=== PATIENT | male | born 1985 | race Caucasian/White ===

== ENCOUNTER 2018-07-25 08:25 | Inpatient (IN) ==
[2018-07-25] MEDS ORDERED: Acetaminophen 325 MG Tablet PO ONE (08:37)
[2018-07-25] MEDS ORDERED: Ketorolac Inj 30 MG/ML (IVP) Vial IV.PUSH ONE (08:39)
[2018-07-25] MEDS ORDERED: Sod Chloride 0.9% Inj 1,000 ML IV.SIG SCH ×2 (08:45→09:30)
--- NOTE | 2018-07-25 08:45 | ED ---
HPI General Chief Complaint: Headache Stated Complaint: flu like symptoms Time Seen by Provider: 07/25/18 08:32 Source: patient Mode of arrival: EMS Limitations: no limitations History of Present Illness HPI Narrative: The patient is a 33-year-old male who presents to the emergency department via EMS for fever, chills, sweats, and possible "blood infection". 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 The patient also complains of diffuse body aches, occasional cough, and nausea with vomiting secondary to cough. The patient states that his girlfriend was recently admitted for a blood infection after shooting heroin. The patient denies any personal history of bacteremia or endocarditis. Symptoms are moderate and progressive. The patient denies any pinpoint back tenderness, simply states his entire back is "sore ". MD complaint: Reports fever and malaise Onset (ago): day(s) Temperature Source: oral Context: Reports other(s) with similar symptoms Associated symptoms: Reports chills, myalgias, cough, nausea and night sweats Relieving factors: nothing Exacerbating factors: other Treatments prior to arrival fever: Reports none Related Data Home Medications Medication Instructions Recorded Confirmed No Known Home Medications 07/25/18 07/25/18 Allergies Allergy/AdvReac Type Severity Reaction Status Date / Time No Known Allergies Allergy Verified 07/25/18 08:32 Review of Systems ROS: all other systems reviewed are negative [facility] Medical History Medical History Chronic back pain (Chronic) Surgical History Surgical History History of back surgery (Chronic) Family History Family History Father Lung cancer Social History Social History Substance History: Active Abuse Second Hand Smoke Exposure: Yes Smoking Status: Current every day smoker Tobacco Type: Cigarettes Packs Per Day: 1.5 Cigarettes Per Day: 30.0 How Often Do You Have a Drink Containing Alcohol: Never Recent Travel in [facility] within the Last 8 Weeks: No Recent Out of Country Travel within the Last 8 Weeks: No Substance Abuse Detail Heroin: Route Used Substance Abuse: Intravenously Immunization History Tetanus Immunization: Unsure Exam Narrative Exam Narrative: GENERAL: Awake, alert, 33-year-old male who appears his stated age and is in no acute respiratory distress. SKIN: Focused skin assessment warm/dry. HEAD: Atraumatic. Normocephalic. EYES: Pupils equal and round. No scleral icterus. No injection or drainage. ENT: No nasal bleeding or discharge. Mucous membranes pink and moist. NECK: Trachea midline. No JVD. CARDIOVASCULAR: Regular, tachycardic with a heart rate of 105. No audible murmur. RESPIRATORY: No accessory muscle use. Few scattered wheezes. GASTROINTESTINAL: Abdomen soft, non-tender, nondistended. Hepatic and splenic margins not palpable. Back: Mild tenderness of the paravertebral muscles but no midline tenderness over the thoracic or lumbar vertebrae. MUSCULOSKELETAL: No obvious deformities. No clubbing. No cyanosis. No edema. NEUROLOGICAL: Awake and alert. No obvious cranial nerve deficits. Motor grossly within normal limits. Normal speech. PSYCHIATRIC: Appropriate mood and affect; insight and judgment normal. Course Initial Documented Vital Signs Temperature 101.2 F H 07/25/18 08:32 Pulse Rate 97 H 07/25/18 08:32 Respiratory Rate 22 07/25/18 08:32 Blood Pressure 115/56 L 07/25/18 08:32 Pulse Oximetry 99 07/25/18 08:32 Last Documented Vital Signs Temperature 97.6 F 07/25/18 15:30 Pulse Rate 65 07/25/18 15:30 Respiratory Rate 16 07/25/18 15:30 Blood Pressure 93/55 L 07/25/18 15:30 Pulse Oximetry 98 07/25/18 15:30 Medical Decision Making [facility] Narrative Medical decision making narrative: IV was established, labs are drawn and sent, and the patient was placed on cardiac telemetry monitoring and continuous pulse oximetry monitoring. EKG was ordered and interpreted. Chest x-ray was obtained. Blood culture and lactic acid was sent to lab. UA was sent to lab. The patient was administered Tylenol, Toradol, and IV fluids. The patient's lactic acid was mildly elevated, therefore, patient was administered 2 L of IV fluids. UA is unremarkable. Chest x-ray is negative for pneumonia. Influenza screen is negative. The patient is high risk for bacteremia/septicemia secondary to IVDA, therefore, was administered vancomycin and cefepime. I discussed the patient with Dr. Nielson who agrees with 23-hour observation until blood cultures have resulted. The patient is comfortable with this plan of care and disposition. Medical Screen Exam Complete: Yes Emergency Medical Condition: Yes Differential Diagnosis Differential Diagnosis: Differential diagnosis includes bacteremia, septicemia, sepsis, endocarditis, epidural abscess, influenza, pneumonia, pyelonephritis, viral syndrome. Lab Data Result diagrams: 07/25/18 08:30 07/25/18 08:30 Lab Results 07/25/18 07/25/18 07/25/18 Range/Units 08:30 08:30 08:30 WBC 5.1 (4.0-11.0) th/mm3 RBC 3.86 L (4.50-5.90) mil/mm3 Hgb 11.8 L (13.0-17.0) gm/dL Hct 33.5 L (39.0-51.0) % MCV 86.8 (80.0-100.0) fL MCH 30.7 (27.0-34.0) pg MCHC 35.3 (32.0-36.0) % RDW 13.0 (11.6-17.2) % Plt Count 140 L (150-450) th/mm3 MPV 8.1 (7.0-11.0) fL Neut % (Auto) 90.6 H (16.0-70.0) % Lymph % (Auto) 6.9 L (9.0-44.0) % [place] % (Auto) 1.7 (0.0-8.0) % Eos % (Auto) 0.6 (0.0-4.0) % Baso % (Auto) 0.2 (0.0-2.0) % Neut # (Auto) 4.6 (1.8-7.7) th/mm3 Lymph # (Auto) 0.4 L (1.0-4.8) th/mm3 [place] # (Auto) 0.1 (0.0-0.9) th/mm3 Eos # (Auto) 0.0 (0.0-0.4) th/mm3 Baso # (Auto) 0.0 (0.0-0.2) th/mm3 WBC Differential . Differential Comment Auto diff final PT 11.5 (9.8-11.6) sec INR 1.1 Ratio APTT 29.2 (23.4-31.7) sec Sodium (136-145) meq/L Potassium (3.5-5.1) meq/L Chloride (98-107) meq/L Carbon Dioxide (21.0-32.0) meq/L Anion Gap (5-15) meq/L BUN (7-18) mg/dL Creatinine (0.60-1.30) mg/dL Estimated GFR (>89) mL/min Random Glucose (74-106) mg/dL Lactic Acid (0.4-2.0) mmol/L Calcium (8.5-10.1) mg/dL Magnesium (1.5-2.5) mg/dL Total Bilirubin (0.2-1.0) mg/dL AST (15-37) U/L ALT (12-78) U/L Alkaline Phosphatase (45-117) U/L Total Creatine Kinase 32 L (39-308) U/L Troponin I Less than 0.02 L (0.02-0.05) ng/mL Total Protein (6.4-8.2) g/dL Albumin (3.4-5.0) g/dL Lipase 108 (73-393) U/L Urine Color (Yellw/Straw) Urine Clarity (Clear) Urine pH (5.0-8.5) Ur Specific [place] (1.002-1.035) Urine Protein (Neg-Trace) mg/dL Urine Glucose (UA) (Negative) mg/dL Urine Ketones (Negative) mg/dL Urine Occult Blood (Negative) Urine Nitrate (Negative) Urine Bilirubin (Negative) Urine Urobilinogen (Less than 2) mg/dL Ur Leukocyte Esterase (Negative) Urine WBC (0-5) /hpf Ur Squamous Epith Cells (0-5) /hpf Micro UA Comment Ur Microscopic Review Urine Culture Comments 07/25/18 07/25/18 07/25/18 Range/Units 08:30 08:30 09:40 WBC (4.0-11.0) th/mm3 RBC (4.50-5.90) mil/mm3 Hgb (13.0-17.0) gm/dL Hct (39.0-51.0) % MCV (80.0-100.0) fL MCH (27.0-34.0) pg MCHC (32.0-36.0) % RDW (11.6-17.2) % Plt Count (150-450) th/mm3 MPV (7.0-11.0) fL Neut % (Auto) (16.0-70.0) % Lymph % (Auto) (9.0-44.0) % [place] % (Auto) (0.0-8.0) % Eos % (Auto) (0.0-4.0) % Baso % (Auto) (0.0-2.0) % Neut # (Auto) (1.8-7.7) th/mm3 Lymph # (Auto) (1.0-4.8) th/mm3 [place] # (Auto) (0.0-0.9) th/mm3 Eos # (Auto) (0.0-0.4) th/mm3 Baso # (Auto) (0.0-0.2) th/mm3 WBC Differential Differential Comment PT (9.8-11.6) sec INR Ratio APTT (23.4-31.7) sec Sodium 138 (136-145) meq/L Potassium 3.7 (3.5-5.1) meq/L Chloride 107 (98-107) meq/L Carbon Dioxide 21.3 (21.0-32.0) meq/L Anion Gap 10 (5-15) meq/L BUN 12 (7-18) mg/dL Creatinine 1.07 (0.60-1.30) mg/dL Estimated GFR 80 L (>89) mL/min Random Glucose 107 H (74-106) mg/dL Lactic Acid 3.0 H (0.4-2.0) mmol/L Calcium 8.5 (8.5-10.1) mg/dL Magnesium 1.6 (1.5-2.5) mg/dL Total Bilirubin 1.1 H (0.2-1.0) mg/dL AST 15 (15-37) U/L ALT 17 (12-78) U/L Alkaline Phosphatase 49 (45-117) U/L Total Creatine Kinase (39-308) U/L Troponin I (0.02-0.05) ng/mL Total Protein 6.8 (6.4-8.2) g/dL Albumin 3.2 L (3.4-5.0) g/dL Lipase (73-393) U/L Urine Color Yellow (Yellw/Straw) Urine Clarity Clear (Clear) Urine pH 7.0 (5.0-8.5) Ur Specific [place] 1.017 (1.002-1.035) Urine Protein Negative (Neg-Trace) mg/dL Urine Glucose (UA) Negative (Negative) mg/dL Urine Ketones Negative (Negative) mg/dL Urine Occult Blood Negative (Negative) Urine Nitrate Negative (Negative) Urine Bilirubin Negative (Negative) Urine Urobilinogen 4 or greater (Less than 2) mg/dL Ur Leukocyte Esterase Negative (Negative) Urine WBC Less than 1 (0-5) /hpf Ur Squamous Epith Cells <1 (0-5) /hpf Micro UA Comment Culture not ind Ur Microscopic Review Not Reportable Urine Culture Comments Culture not ind 07/25/18 Range/Units 16:56 WBC (4.0-11.0) th/mm3 RBC (4.50-5.90) mil/mm3 Hgb (13.0-17.0) gm/dL Hct (39.0-51.0) % MCV (80.0-100.0) fL MCH (27.0-34.0) pg MCHC (32.0-36.0) % RDW (11.6-17.2) % Plt Count (150-450) th/mm3 MPV (7.0-11.0) fL Neut % (Auto) (16.0-70.0) % Lymph % (Auto) (9.0-44.0) % [place] % (Auto) (0.0-8.0) % Eos % (Auto) (0.0-4.0) % Baso % (Auto) (0.0-2.0) % Neut # (Auto) (1.8-7.7) th/mm3 Lymph # (Auto) (1.0-4.8) th/mm3 [place] # (Auto) (0.0-0.9) th/mm3 Eos # (Auto) (0.0-0.4) th/mm3 Baso # (Auto) (0.0-0.2) th/mm3 WBC Differential Differential Comment PT (9.8-11.6) sec INR Ratio APTT (23.4-31.7) sec Sodium (136-145) meq/L Potassium (3.5-5.1) meq/L Chloride (98-107) meq/L Carbon Dioxide (21.0-32.0) meq/L Anion Gap (5-15) meq/L BUN (7-18) mg/dL Creatinine (0.60-1.30) mg/dL Estimated GFR (>89) mL/min Random Glucose (74-106) mg/dL Lactic Acid 1.7 (0.4-2.0) mmol/L Calcium (8.5-10.1) mg/dL Magnesium (1.5-2.5) mg/dL Total Bilirubin (0.2-1.0) mg/dL AST (15-37) U/L ALT (12-78) U/L Alkaline Phosphatase (45-117) U/L Total Creatine Kinase (39-308) U/L Troponin I (0.02-0.05) ng/mL Total Protein (6.4-8.2) g/dL Albumin (3.4-5.0) g/dL Lipase (73-393) U/L Urine Color (Yellw/Straw) Urine Clarity (Clear) Urine pH (5.0-8.5) Ur Specific [place] (1.002-1.035) Urine Protein (Neg-Trace) mg/dL Urine Glucose (UA) (Negative) mg/dL Urine Ketones (Negative) mg/dL Urine Occult Blood (Negative) Urine Nitrate (Negative) Urine Bilirubin (Negative) Urine Urobilinogen (Less than 2) mg/dL Ur Leukocyte Esterase (Negative) Urine WBC (0-5) /hpf Ur Squamous Epith Cells (0-5) /hpf Micro UA Comment Ur Microscopic Review Urine Culture Comments Imaging Data Radiologist's impression: Chest X-Ray 07/25/18 08:38 CONCLUSION: No evidence of acute cardiopulmonary process. ECG Data EKG Prior to Arrival: No Attestation: I personally reviewed and interpreted this ECG as follows: Interpretation: EKG reveals normal sinus rhythm with a rate 81. Nonspecific T wave changes. Discharge Plan Discharge Disposition Patient Disposition: ED Admit(ED Internal Use Only) Discharge Condition Condition: Stable Discharge Order Discharge Orders: ED Use Only Admit Order (Routine); Ordered 07/25/18 Ordered By: Erasmo Howard Discharge Details Diagnosis: SIRS (systemic inflammatory response syndrome), IVDU (intravenous drug user), Fever Physicians Team ED Provider: Erasmo Howard Primary Care Provider: UNKNOWN, Attending Provider: Debby Nielson Discharge Interventions Interventions: Vital Signs Last Done: 07/25/18 12:34 ED Discharge Assessment Last Done: 07/25/18 12:34 Status ED Status: Admitted Observation Patient
[2018-07-25 08:54] LABS: Baso % (Auto) 0.2 % (0.0-2.0); Eos % (Auto) 0.6 % (0.0-4.0); Hematocrit 33.5 % (39.0-51.0); Hemoglobin 11.8 gm/dL (13.0-17.0); Lymph # (Auto) 0.4 th/mm3 (1.0-4.8); Lymph % (Auto) 6.9 % (9.0-44.0); Mean Corpuscular HGB Conc 35.3 % (32.0-36.0); Mean Corpuscular Hemoglobin 30.7 pg (27.0-34.0); Mean Corpuscular Volume 86.8 fL (80.0-100.0); Mean Platelet Volume 8.1 fL (7.0-11.0); Mono # (Auto) 0.1 th/mm3 (0.0-0.9); Mono % (Auto) 1.7 % (0.0-8.0); Neut # (Auto) 4.6 th/mm3 (1.8-7.7); Neut % (Auto) 90.6 % (16.0-70.0); Platelet Count 140 th/mm3 (150-450); Red Blood Count 3.86 mil/mm3 (4.50-5.90); White Blood Count 5.1 th/mm3 (4.0-11.0)
[2018-07-25 09:04] LABS: Activated Partial Thrombo Time 29.2 sec (23.4-31.7); INR 1.1 Ratio; Prothrombin Time 11.5 sec (9.8-11.6)
--- NOTE | 2018-07-25 09:14 | XR ---
EXAM DATE: 07/25/2018 9:07 AM EST AGE/SEX: 33 years / Male INDICATIONS: Chest pain for 2 days. CLINICAL DATA: This is the patient's initial encounter. Patient reports that signs and symptoms have been present for 2 days and indicates a pain score of 8/10. MEDICAL/SURGICAL HISTORY: None. None. COMPARISON: . FINDINGS: A single AP view of the chest demonstrates the lungs to be symmetrically aerated without evidence of mass, infiltrate or effusion. The cardiomediastinal contours are unremarkable. Osseous structures a re intact. CONCLUSION: No evidence of acute cardiopulmonary process. Electronically signed by: Raj De Oliveira MD Board Certified Radiologist 07/25/2018 9:12 AM EST
[2018-07-25 09:15] LABS: Alanine Aminotransferase 17 U/L (12-78); Albumin 3.2 g/dL (3.4-5.0); Anion Gap 10 meq/L (5-15); Aspartate Aminotransferase 15 U/L (15-37); Blood Urea Nitrogen 12 mg/dL (7-18); Calcium 8.5 mg/dL (8.5-10.1); Carbon Dioxide 21.3 meq/L (21.0-32.0); Chloride 107 meq/L (98-107); Glomerular Filtration Rate 80 mL/min (>89); Glucose,Random 107 mg/dL (74-106); Magnesium 1.6 mg/dL (1.5-2.5); Potassium 3.7 meq/L (3.5-5.1); Sodium 138 meq/L (136-145)
[2018-07-25 09:18] LABS: Alkaline Phosphatase 49 U/L (45-117); Total Protein 6.8 g/dL (6.4-8.2)
[2018-07-25 09:21] LABS: Lipase 108 U/L (73-393)
[2018-07-25 09:40] LABS: Creatine Kinase 32 U/L (39-308)
[2018-07-25 10:21] LABS: Bilirubin,Urine Negative (Negative); Clarity,Urine Clear (Clear); Color,Urine Yellow (Yellw/Straw); Glucose,Urine (UA) Negative (Negative); Leukocyte Esterase,Urine Negative (Negative); Nitrite,Urine Negative (Negative); Specific Gravity,Urine 1.017 (1.002-1.035); Squamous Epithelial Cell,Urine <1 /hpf (0-5); Urobilinogen,Urine 4 or Greater mg/dL (Less than 2)
[2018-07-25] MEDS ORDERED: Naloxone Inj 0.4 MG/ML Vial IV.PUSH PRN (11:20)
[2018-07-25] MEDS ORDERED: Acetaminophen 325 MG Tablet PO PRN ×2 (11:20)
[2018-07-25] MEDS ORDERED: Bisacodyl 10 MG Supp RECTAL PRN (11:20)
[2018-07-25] MEDS ORDERED: Vancomycin Consult Pharmacy OTHER PRN (11:24)
[2018-07-25] MEDS ORDERED: Ibuprofen 400 MG Tablet PO SCH (12:00)
[2018-07-25] MEDS ORDERED: Vancomycin Inj 1,000 MG in Sodium Chlor 0.9% Inj 250 ML IV.SIG SCH ×2 (12:00→18:00)
--- NOTE | 2018-07-25 12:19 | P.HPIM ---
History of Present Illness Primary Care Physician: UNKNOWN Chief Complaint: Fevers and chills History of Present Illness: 33-year-old white male with a history of IV drug abuse presents to the emergency room with a 3-day history of intermittent chills of fever along with some nausea, body aches, joint pains, few episodes of diarrhea. He reports his last IV use was yesterday with heroin and Dilaudid. He usually injects on his right antecubital area. He has not seen any other lesions in his body. 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 He also smokes 1-1/2 pack of cigarettes on a daily basis. He has a history of chronic back pain for herniated disc in which he completed surgery in the past. Diagnosis (1) SIRS (systemic inflammatory response syndrome): (2) IVDU (intravenous drug user): Review of Systems Constitutional: Reports as per HPI, Reports body ache(s), Reports chills, Denies fatigue, Reports fever(s) and Denies headache(s) Eyes: Denies blurry vision, Denies change in vision and Denies eye pain Ears, Nose, Mouth, and Throat: Denies abnormal hearing, Denies headache(s), Denies mouth pain, Denies nasal congestion, Denies neck pain and Denies sore throat Cardiovascular: Denies chest pain, Denies pedal edema, Denies palpitations and Denies dyspnea Respiratory: Denies cough and Denies dyspnea Gastrointestinal: Denies abdominal pain, Denies constipation, Reports loose stools, Reports nausea and Reports vomiting Musculoskeletal: Reports back pain, Reports myalgias, Reports arthralgias, Denies neck pain and Denies numbness Skin/Breast: Denies new lesions and Denies rash Neurologic: Denies abnormal hearing, Denies headache(s), Denies focal weakness, Denies memory loss and Denies numbness Psychiatric: Denies anxiety, Denies depression and Denies memory loss Endocrine: Denies cold intolerance, Denies heat intolerance and Denies palpitations Hematologic/Lymphatic: Denies easy bleeding and Denies easy bruising PMFSH History History Provided By: Patient Medical History Medical History Chronic back pain (Chronic) Surgical History Surgical History History of back surgery (Chronic) Family History Family History Father Lung cancer Social History Social History Substance History: Active Abuse Second Hand Smoke Exposure: Yes Smoking Status: Current every day smoker Tobacco Type: Cigarettes Packs Per Day: 1.5 Cigarettes Per Day: 30.0 How Often Do You Have a Drink Containing Alcohol: Never Recent Travel in [place] within the Last 8 Weeks: No Recent Out of Country Travel within the Last 8 Weeks: No Substance Abuse Detail Heroin: Route Used Substance Abuse: Intravenously Immunization History Tetanus Immunization: Unsure Medications and Allergies Allergies Allergy/AdvReac Type Severity Reaction Status Date / Time No Known Allergies Allergy Verified 07/25/18 08:32 Home Medications Medication Instructions Recorded Confirmed Type No Known Home Medications 07/25/18 07/25/18 History Active Medications: Active Medications Acetaminophen (Tylenol) 650 mg PO Q4H PRN PRN Reason: Temp > 100.4 Acetaminophen (Tylenol) 650 mg PO Q6HR PRN PRN Reason: PAIN SCALE 6 TO 10 Al Hydroxide/Mg Hydroxide (Milk Of Magnesia Liq) 30 ml PO Q12H PRN PRN Reason: Mild Constipation Bisacodyl (Dulcolax Supp) 10 mg RECTAL DAILY PRN PRN Reason: SEVERE CONSITIPATION Vancomycin HCl 1,000 mg/ (Sodium Chloride) 250 mls @ 250 mls/hr IV.SIG [employer]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 Vancomycin HCl 1,000 mg/ (Sodium Chloride) 250 mls @ 250 mls/hr IV.SIG Q12H BASIL Cefepime HCl 1,000 mg/ Sodium (Chloride) 100 mls @ 200 mls/hr IV.SIG Q8H BASIL Ibuprofen (Motrin) 400 mg PO Q4HR BASIL Ketorolac Tromethamine (Toradol Inj) 30 mg IV.PUSH Q6H PRN PRN Reason: BREAKTHROUGH PAIN Stop: 07/30/18 11:19 Lactulose (Lactulose Liq) 30 ml PO DAILY PRN PRN Reason: SEVERE CONSITIPATION Naloxone HCl (Narcan Inj) 0.4 mg IV.PUSH UNSCH PRN PRN Reason: SEE LABEL COMMENTS Ondansetron HCl (Zofran Inj) 4 mg IV.PUSH Q6H PRN PRN Reason: NAUSEA OR VOMITING Pharmacy Profile Note (Vancomycin Consult Pharmacy) 1 each OTHER UNSCH PRN PRN Reason: Pharmacy to dose Sennosides (Senokot) 17.2 mg PO Q12H PRN PRN Reason: Moderate Constipation Sodium Chloride (Ns Flush) 2 ml IV.FLUSH BID BASIL Sodium Chloride (Ns Flush) 2 ml IV.FLUSH PRN PRN PRN Reason: FLUSH AFTER USING IV ACCESS Physical Exam Vital signs: Last Vital Signs Temp 98.9 F 07/25/18 10:20 Pulse 88 07/25/18 10:20 Resp 20 07/25/18 10:20 BP 112/58 L 07/25/18 10:20 Pulse Ox 98 07/25/18 10:20 Intake & Output 07/23/18 07/24/18 07/25/18 07/26/18 06:59 06:59 06:59 06:59 Intake Total 1999 Balance 1999 Weight 90.718 kg Narrative: GENERAL: Well-nourished well-developed male no acute distress SKIN: Warm and dry. Injection track velasquez over the right antecubital area HEAD: Atraumatic. Normocephalic. EYES: Pupils equal and round. No scleral icterus. No injection or drainage. ENT: No nasal bleeding or discharge. Mucous membranes pink and moist. NECK: Trachea midline. No JVD. CARDIOVASCULAR: Regular rate and rhythm. RESPIRATORY: No accessory muscle use. Clear to auscultation. Breath sounds equal bilaterally. GASTROINTESTINAL: Abdomen soft, non-tender, nondistended. Normoactive bowel sounds MUSCULOSKELETAL: Extremities without clubbing, cyanosis, or edema. No obvious deformities. NEUROLOGICAL: Awake and alert to person place time. No obvious cranial nerve deficits. Motor grossly within normal limits. Five out of 5 muscle strength in the arms and legs. Normal speech. PSYCHIATRIC: Appropriate mood and affect; insight and judgment normal. Results Labs CBC & Chem 7: 07/25/18 08:30 07/25/18 08:30 Imaging Impressions Chest X-Ray 07/25/18 08:38 CONCLUSION: No evidence of acute cardiopulmonary process. Caprini VTE Risk Assessment Caprini VTE Risk Assessment: No/Low Risk (score <= 1) Caprini Risk Assessment Model: Point Value = 1 Point Value = 2 Point Value = 3 Point Value = 5 Age 41-60 Minor surgery BMI > 25 kg/m2 Swollen legs Varicose veins or History of unexplained or recurrent spontaneous Oral contraceptives or hormone replacement Sepsis (< 1 month) Serious lung disease, including pneumonia (< 1 month) Abnormal pulmonary function Acute myocardial infarction Congestive heart failure (< 1 month) History of inflammatory bowel disease Medical patient at bed rest Age 61-74 Arthroscopic surgery Major open surgery (> 45 min) Laparoscopic surgery (> 45 min) Malignancy Confined to bed (> 72 hours) Immobilizing plaster cast Central venous access Age >= 75 History of VTE Family history of VTE Factor V Leiden Prothrombin [id number] Lupus anticoagulant Anticardiolipin antibodies Elevated serum homocysteine Heparin-induced thrombocytopenia Other congenital or acquired thrombophilia Stroke (< 1 month) Elective arthroplasty Hip, pelvis, or leg fracture Acute spinal cord injury (< 1 month) Prophylaxis Regimen: Total Risk Factor Score Risk Level Prophylaxis Regimen 0-1 Low Early ambulation 2 Moderate Order ONE of the following: *Sequential Compression Device (SCD) *Heparin 5000 units SQ BID 3-4 Higher Order ONE of the following medications: *Heparin 5000 units SQ TID *Enoxaparin/Lovenox 40 mg SQ daily (WT < 150 kg, CrCl > 30 mL/min) *Enoxaparin/Lovenox 30 mg SQ daily (WT < 150 kg, CrCl > 10-29 mL/min) *Enoxaparin/Lovenox 30 mg SQ BID (WT < 150 kg, CrCl > 30 mL/min) AND/OR *Sequential Compression Device (SCD) 5 or more Highest Order ONE of the following medications: *Heparin 5000 units SQ TID (Preferred with Epidurals) *Enoxaparin/Lovenox 40 mg SQ daily (WT < 150 kg, CrCl > 30 mL/min) *Enoxaparin/Lovenox 30 mg SQ daily (WT < 150 kg, CrCl > 10-29 mL/min) *Enoxaparin/Lovenox 30 mg SQ BID (WT < 150 kg, CrCl > 30 mL/min) AND *Sequential Compression Device (SCD) Assessment and Plan (1) SIRS (systemic inflammatory response syndrome): Code(s): R65.10 - Systemic inflammatory response syndrome (SIRS) of non-infectious origin without acute organ dysfunction Status: Acute (2) IVDU (intravenous drug user): Code(s): F19.90 - Other psychoactive substance use, unspecified, uncomplicated Status: Acute Plan 33-year-old white male with a history of IV drug abuse with Dilaudid and heroin presents with 3-day history of fevers and chills, body ache Systemic inflammatory response syndrome with subjective complaints of chills and fever with a history of IV drug abuseblood cultures currently pending, lactic acid 3.0 will repeat level to rule out underlying severe sepsis for bacteremia as source of infection. IV cefepime and vancomycin started. IV drug abusepatient counseled. Tobacco abuse cessation counseling provided, nicotine patch.
[2018-07-25] MEDS: Vancomycin Inj 1,750 MG in Sodium Chlor 0.9% Inj 500 ML IV.SIG SCH (14:01)
[2018-07-25] MEDS: Ketorolac Inj 30 MG/ML (IVP) Vial IV.PUSH PRN ×2 (17:49→23:51)
[2018-07-26] MEDS: Vancomycin Inj 1,750 MG in Sodium Chlor 0.9% Inj 500 ML IV.SIG SCH ×2 (02:21→16:26)
[2018-07-26 04:37] LABS: Baso % (Auto) 0.4 % (0.0-2.0); Eos % (Auto) 0.8 % (0.0-4.0); Hematocrit 30.6 % (39.0-51.0); Hemoglobin 10.7 gm/dL (13.0-17.0); Lymph # (Auto) 1.5 th/mm3 (1.0-4.8); Lymph % (Auto) 24.9 % (9.0-44.0); Mean Corpuscular Hemoglobin 30.3 pg (27.0-34.0); Mean Corpuscular Volume 86.6 fL (80.0-100.0); Mean Platelet Volume 9.2 fL (7.0-11.0); Mono % (Auto) 16.2 % (0.0-8.0); Neut # (Auto) 3.5 th/mm3 (1.8-7.7); Neut % (Auto) 57.7 % (16.0-70.0); Platelet Count 107 th/mm3 (150-450); Red Blood Count 3.54 mil/mm3 (4.50-5.90); Red Cell Distribution Width 12.8 % (11.6-17.2)
[2018-07-26 05:06] LABS: Anion Gap 7 meq/L (5-15); Blood Urea Nitrogen 13 mg/dL (7-18); Calcium 8.1 mg/dL (8.5-10.1); Carbon Dioxide 25.1 meq/L (21.0-32.0); Chloride 111 meq/L (98-107); Glomerular Filtration Rate Greater Than 89 mL/min (>89); Glucose,Random 95 mg/dL (74-106); Potassium 3.8 meq/L (3.5-5.1); Sodium 143 meq/L (136-145)
[2018-07-26] MEDS: Ketorolac Inj 30 MG/ML (IVP) Vial IV.PUSH PRN ×3 (06:30→20:49)
--- NOTE | 2018-07-26 09:19 | P.PNIM ---
Subjective Interval history: Reports that he feels worse. Still with chills, loose stools. Feels like he is in withdrawal. Once something stronger than [place]. Feels anxious. Physical Exam Vital signs: Last Vital Signs Temp 97.3 F L 07/26/18 08:00 Pulse 53 L 07/26/18 08:00 Resp 20 07/26/18 08:00 BP 106/62 07/26/18 08:00 Pulse Ox 98 07/26/18 08:00 Intake & Output 07/24/18 07/25/18 07/26/18 07/27/18 06:59 06:59 06:59 06:59 Intake Total 4275.0 / 4275.0 Balance 4275.0 / 4275.0 Weight 90.718 kg Narrative: GENERAL: Well-nourished well-developed male no acute distress SKIN: Warm and dry. Injection track velasquez over the right antecubital area with no changes CARDIOVASCULAR: Regular rate and rhythm. RESPIRATORY: No accessory muscle use. Clear to auscultation. Breath sounds equal bilaterally. GASTROINTESTINAL: Abdomen soft, non-tender, nondistended. Normoactive bowel sounds MUSCULOSKELETAL: Extremities without clubbing, cyanosis, or edema. No obvious deformities. NEUROLOGICAL: Awake and alert to person place time. No obvious cranial nerve deficits. Motor grossly within normal limits. Five out of 5 muscle strength in the arms and legs. Normal speech. PSYCHIATRIC: Anxious; Results Labs CBC & Chem 7: 07/26/18 03:51 07/26/18 03:51 Labs: Microbiology 07/25/18 08:20 Blood - Peripheral Anaerobic Blood Culture - Preliminary gram negative rods 07/25/18 08:30 Blood - Peripheral Anaerobic Blood Culture - Preliminary gram negative rods 07/25/18 09:35 Nasal Wash Influenza Types A,B Antigen - Final Negative for FLU A and B antigen Infection due to influenza A or B cannot be ruled out since the antigen present in the sample may be below the detection limit of the test. Imaging Imaging: Impressions Chest X-Ray 07/25/18 08:38 CONCLUSION: No evidence of acute cardiopulmonary process. Assessment and Plan (1) SIRS (systemic inflammatory response syndrome): Code(s): R65.10 - Systemic inflammatory response syndrome (SIRS) of non-infectious origin without acute organ dysfunction Status: Deleted (2) IVDU (intravenous drug user): Code(s): F19.90 - Other psychoactive substance use, unspecified, uncomplicated Status: Acute (3) Severe sepsis: Code(s): A41.9 - Sepsis, unspecified organism; R65.20 - Severe sepsis without septic shock Status: Acute Plan 33-year-old white male with a history of IV drug abuse with Dilaudid and heroin presents with 3-day history of fevers and chills, body ache Severe sepsis present on admission with fever, tachycardia in patientblood cultures now positive for gram-negative rods, lactic acid 3.0 continue IV cefepime and vancomycin until final blood cultures. Consult infectious disease , admit inpatient, obtain 2D echo to rule out for endocarditis. IV drug abusepatient counseled. Tobacco abuse cessation counseling provided, nicotine patch. Progress Note: Quality VTE Deep Vein Thrombosis/Pulmonary Embolism Present on Admission: No
[2018-07-26] MEDS: Sod Chloride 0.9% Inj 1,000 ML IV.CONT SCH ×3 (10:32→19:00)
--- NOTE | 2018-07-26 13:10 | MB ---
cc: Luis Spear MD,Debby STEWART DATE: 07/26/2018 REQUESTING PHYSICIAN: Debby Nielson. REASON FOR CONSULTATION: Severe sepsis with gram-negative steven bacteremia, patient with IV drug abuse. HISTORY OF PRESENT ILLNESS: This is a 33-year-old white male, who presented to the emergency department today with headache and flu-like symptoms. The patient notes that he developed severe headache, along with chills, sweats, and fever. He also notes diffuse body aches as well. The patient has a history of IV drug use, and has been using heroin IV lately. He had elevated temperature of 101.2 yesterday morning. His white blood cell count is normal. Blood cultures were taken yesterday morning and have gram-negative rods in both sets. Influenza test is negative. His temperature has improved today. He continues to have a headache, approximately 6/10 scale. He also notes pain in his back. He has a history of back surgery for herniated disk in the past. PAST MEDICAL HISTORY: Chronic back pain, history of back surgery for herniated disk in 2012. ALLERGIES: NO KNOWN DRUG ALLERGIES. MEDICATIONS: Cefepime, nicotine patch, Tylenol, [place] 5 p.r.n. SOCIAL HISTORY: Positive tobacco use. No alcohol. Positive IV drug use in the form of heroin. FAMILY HISTORY: Noncontributory. REVIEW OF SYSTEMS: Pertinent mentioned in history of present illness. All systems have been reviewed and otherwise negative. PHYSICAL EXAMINATION: GENERAL: He is a slender, well-developed male, who is in no acute distress. He is awake, alert, and oriented. VITAL SIGNS: Temperature 98 degrees, BP 115/68, respirations 20, heart rate 70. HEENT: The head is atraumatic. Extraocular movements are grossly intact. Pupils reactive to light. No icterus. No conjunctival erythema. Oropharynx: Moist mucosa without lesions. NECK: Supple without adenopathy. LUNGS: Clear to auscultation. HEART: Regular S1, S2. No murmurs, rubs or gallops. ABDOMEN: Bowel sounds present. Soft, nontender. BACK: Mild tenderness at the low back. The surgical scar at the lower back is intact. RECTAL: Intact. EXTREMITIES: No clubbing, cyanosis or edema. No embolic lesions. SKIN: No diffuse rash. NEUROLOGIC: Nonfocal. PSYCHIATRIC: The patient is calm and cooperative. LABORATORY DATA: WBC 6.0, platelets 107, hemoglobin 10.7, 57% neutrophils, 24% lymphocytes, 16% monocytes. Creatinine 0.82. Estimated GFR greater than 89. LFTs normal. IMPRESSION: 1. Sepsis, probably secondary to IV drug use. 2. Gram-negative bacteremia. 3. Thrombocytopenia. RECOMMENDATIONS: 1. Continue cefepime, but increase the dose to 2 grams IV every 8 hours. 2. Continue to monitor blood cultures. 3. Monitor echocardiogram results. Echocardiogram was performed earlier today. 4. Monitor clinical status. 5. Follow the patient's symptomatology with the headaches, could be related to drug withdrawal. Thank you for this consultation. I will monitor the patient's progress along with you. Luis Spear MD FFDevaughn/rh , 12:32 PM , 12:50 PM
--- NOTE | 2018-07-26 13:37 | ECG ---
Date Performed: 07/25/2018 Time Performed: 09:00:15 PTAGE: 33 years EKG: Sinus rhythm NONSPECIFIC T-WAVE ABNORMALITY BORDERLINE ECG NO PREVIOUS TRACING DOCTOR: Antoni Luther Interpretating Date/Time 07/26/2018 13:29:15
--- NOTE | 2018-07-26 14:23 | ECHRPT ---
Indication: SEPSIS ENDOCARDITIS CONCLUSIONS Normal left ventricular size. Wall thickness is normal. The left ventricular systolic function is normal with an estimated ejection fraction in the range o f 50-55%. No regional wall motion abnormalities are present. Trace mitral valve regurgitation. There is mild tricuspid valve regurgitation. The estimated pulmonary arterial pressure is 39 mmHg. BP: / HR: Rhythm: Technical Quality: FINDINGS LEFT VENTRICLE Normal left ventricular size. Wall thickness is normal. The left ventricular systolic function is normal with an estimated ejection fraction in the range o f 50-55%. No regional wall motion abnormalities are present. RIGHT VENTRICLE Normal right ventricular size and systolic function. LEFT ATRIUM The left atrial size is normal. RIGHT ATRIUM The right atrial size is normal. ATRIAL SEPTUM Normal atrial septal thickness without atrial level shunting by limited color doppler interrogation. AORTA The aortic root and proximal ascending aorta are normal in size on limited imaging. MITRAL VALVE Trace mitral valve regurgitation. AORTIC VALVE Trileaflet aortic valve. No aortic valve stenosis or regurgitation. TRICUSPID VALVE There is mild tricuspid valve regurgitation. The estimated pulmonary arterial pressure is 39 mmHg. PULMONARY VALVE The pulmonary valve is not well visualized. VESSELS The inferior vena cava is normal in size. PERICARDIUM No pericardial effusion. Hugo Ponce MD (Electronically Signed) Final Date:26 July 2018 14:23
[2018-07-27] MEDS ORDERED: Pharmacy Ordered Lab Info OTHER ONE (02:45)
[2018-07-27] MEDS: Ketorolac Inj 30 MG/ML (IVP) Vial IV.PUSH PRN ×3 (03:45→16:26)
[2018-07-27] MEDS: Vancomycin Inj 1,750 MG in Sodium Chlor 0.9% Inj 500 ML IV.SIG SCH (04:02)
--- NOTE | 2018-07-27 09:38 | P.PNIM ---
Subjective Interval history: Wants to take the [place] every 4 hours due to continued pain and not feeling well. Physical Exam Vital signs: Last Vital Signs Temp 98.4 F 07/27/18 08:00 Pulse 65 07/27/18 08:00 Resp 12 07/27/18 08:00 BP 131/68 07/27/18 08:00 Pulse Ox 99 07/27/18 08:00 Intake & Output 07/25/18 07/26/18 07/27/18 07/28/18 06:59 06:59 06:59 06:59 Intake Total 4275.0 / 4275.0 2937.5 / 2937.5 617.5 / 617.5 Output Total 550 / 550 Balance 4275.0 / 4275.0 2387.5 / 2387.5 617.5 / 617.5 Weight 90.718 kg 91.3 kg Narrative: GENERAL: Well-nourished well-developed male no acute distress SKIN: Warm and dry. Injection track velasquez over the right antecubital area with no changes CARDIOVASCULAR: Regular rate and rhythm. RESPIRATORY: No accessory muscle use. Clear to auscultation. Breath sounds equal bilaterally. GASTROINTESTINAL: Abdomen soft, non-tender, nondistended. Normoactive bowel sounds MUSCULOSKELETAL: Extremities without clubbing, cyanosis, or edema. No obvious deformities. NEUROLOGICAL: Awake and alert to person place time. No obvious cranial nerve deficits. Motor grossly within normal limits. Five out of 5 muscle strength in the arms and legs. Normal speech. PSYCHIATRIC: Anxious; Results Labs CBC & Chem 7: 07/26/18 03:51 07/26/18 03:51 Labs: Microbiology 07/25/18 08:30 Blood - Peripheral Aerobic Blood Culture - Preliminary No growth in 1 day 07/25/18 08:30 Blood - Peripheral Anaerobic Blood Culture - Preliminary gram negative rods 07/25/18 08:20 Blood - Peripheral Aerobic Blood Culture - Preliminary No growth in 1 day 07/25/18 08:20 Blood - Peripheral Anaerobic Blood Culture - Preliminary gram negative rods Assessment and Plan (1) IVDU (intravenous drug user): Code(s): F19.90 - Other psychoactive substance use, unspecified, uncomplicated Status: Acute (2) Severe sepsis: Code(s): A41.9 - Sepsis, unspecified organism; R65.20 - Severe sepsis without septic shock Status: Acute Plan 33-year-old white male with a history of IV drug abuse with Dilaudid and heroin presents with 3-day history of fevers and chills, body ache Severe sepsis present on admission with fever, tachycardia in patient due to bacteremia from IV Drug Abuseblood cultures now positive for gram-negative rods , lactic acid 3.0 continue IV cefepime and vancomycin until final blood cultures. Appreciate infectious disease recommendations, 2D echo showed normal EF with no endocarditis. IV drug abusepatient counseled. Tobacco abuse cessation counseling provided, nicotine patch. Progress Note: Quality VTE Deep Vein Thrombosis/Pulmonary Embolism Present on Admission: No
[2018-07-27] MEDS: Sod Chloride 0.9% Inj 1,000 ML IV.CONT SCH (09:45)
[2018-07-27] MEDS: Vancomycin Inj 2,000 MG in Sodium Chlor 0.9% Inj 500 ML IV.SIG SCH (14:51)
[2018-07-28] MEDS: Vancomycin Inj 2,000 MG in Sodium Chlor 0.9% Inj 500 ML IV.SIG SCH (03:28)
[2018-07-28 06:29] LABS: Blood Urea Nitrogen 10 mg/dL (7-18); Glomerular Filtration Rate Greater Than 89 mL/min (>89)
--- NOTE | 2018-07-28 11:14 | P.PNIM ---
Subjective Interval history: No fevers or chills. Still needing the [place] for pain. Physical Exam Vital signs: Last Vital Signs Temp 98.2 F 07/28/18 08:11 Pulse 66 07/28/18 08:11 Resp 20 07/28/18 08:11 BP 125/70 07/28/18 08:11 Pulse Ox 98 07/28/18 08:11 Intake & Output 07/26/18 07/27/18 07/28/18 07/29/18 06:59 06:59 06:59 06:59 Intake Total 4275.0 / 4275.0 2937.5 / 2937.5 2697.5 / 2697.5 Output Total 550 / 550 1999 / 1999 Balance 4275.0 / 4275.0 2387.5 / 2387.5 697.5 / 697.5 Weight 90.718 kg 91.3 kg 91.3 kg Narrative: GENERAL: Well-nourished well-developed male no acute distress SKIN: Warm and dry. Injection track velasquez over the right antecubital area with no changes CARDIOVASCULAR: Regular rate and rhythm. RESPIRATORY: No accessory muscle use. Clear to auscultation. Breath sounds equal bilaterally. NEUROLOGICAL: Awake and alert to person place time. PSYCHIATRIC: Anxious; Results Labs CBC & Chem 7: 07/26/18 03:51 07/28/18 05:23 Labs: Microbiology 07/25/18 08:20 Blood - Peripheral Aerobic Blood Culture - Preliminary No growth in 3 days 07/25/18 08:20 Blood - Peripheral Anaerobic Blood Culture - Final Serratia marcescens 07/25/18 08:30 Blood - Peripheral Aerobic Blood Culture - Preliminary No growth in 3 days 07/25/18 08:30 Blood - Peripheral Anaerobic Blood Culture - Final Serratia marcescens Assessment and Plan (1) IVDU (intravenous drug user): Code(s): F19.90 - Other psychoactive substance use, unspecified, uncomplicated Status: Acute (2) Severe sepsis: Code(s): A41.9 - Sepsis, unspecified organism; R65.20 - Severe sepsis without septic shock Status: Acute (3) Bacterial infection due to Serratia: Code(s): A49.8 - Other bacterial infections of unspecified site Status: Acute Plan 33-year-old white male with a history of IV drug abuse with Dilaudid and heroin presents with 3-day history of fevers and chills, body ache Severe sepsis present on admission with fever, tachycardia in patient due to bacteremia from IV Drug Abuse Serratia bacteremia blood cultures now positive for Serratia, lactic acid 3.0 continue IV cefepime and discontinue vancomycin; follow-up with final blood cultures Await final recommendations from ID, 2D echo showed normal EF with no endocarditis. Repeat blood cultures today IV drug abusepatient counseled. Tobacco abuse cessation counseling provided, nicotine patch. Progress Note: Quality VTE Deep Vein Thrombosis/Pulmonary Embolism Present on Admission: No
[2018-07-28] MEDS: Ketorolac Inj 30 MG/ML (IVP) Vial IV.PUSH PRN ×2 (13:16→19:46)
[2018-07-28] MEDS ORDERED: Pharmacy Ordered Lab Info OTHER ONE (14:45)
[2018-07-28] MEDS ORDERED: Promethazine 25 MG Supp RECTAL PRN (14:51)
[2018-07-28] MEDS ORDERED: Melatonin 5 MG Tablet PO PRN (14:52)
--- NOTE | 2018-07-28 16:19 | P.PNID ---
Subjective Remarks: 33-year-old male, admitted to the hospital with fever and chills. He has known IV drug use. His blood cultures are growing Serratia. Echocardiogram done did not show any vegetation. He is currently afebrile. Has back pain which seems to be chronic, has had previous back surgery for herniated disc, which was complicated by infection Also has some knee pain. No nausea or vomiting No urinary complaints No rash or itching Antibiotics: Cefepime Lines: PIV Past Medical History: IV drug use Chronic pain Back surgery Allergies/Adverse Reactions: Allergies No Known Allergies Allergy (Verified 07/25/18 08:32) Objective Vital Signs 07/27/18 19:52 07/27/18 23:21 07/28/18 03:35 Temperature 99.2 F 98.0 F 98.2 F Pulse Rate 52 L 58 L 54 L Respiratory Rate 16 17 17 Blood Pressure 129/93 H 139/81 137/77 Pulse Oximetry 96 96 97 07/28/18 08:11 07/28/18 11:05 07/28/18 13:30 Temperature 98.2 F 98.2 F Pulse Rate 66 72 Respiratory Rate 20 20 18 Blood Pressure 125/70 117/69 Pulse Oximetry 98 98 07/28/18 15:10 Temperature 98.2 F Pulse Rate 65 Respiratory Rate 20 Blood Pressure 128/78 Pulse Oximetry 98 Intake & Output 07/27/18 07/28/18 07/28/18 18:59 06:59 18:59 Intake Total 1237.5 / 1237.5 1460 / 1460 100 / 100 Output Total 1999 Balance 1237.5 / 1237.5 -540 / -540 100 / 100 Weight 91.3 kg Intake: IV 1237.5 / 1237.5 740 / 740 100 / 100 Maxipime Inj 2,000 MG In NS Inj 200 / 200 200 / 200 100 / 100 100 ML @ 200 mls/hr IV.SIG Q8H [facility] Rx#:[id number] Vancomycin Inj 2,000 MG In NS 1037.5 / 1037.5 540 / 540 Inj 500 ML @ 250 mls/hr IV.SIG Q12H [facility] Rx#:[id number] Oral 720 / 720 Output: Urine 1999 Other: Post Void Residual 2 # Voids 3 Date of Last Bowel Movement 07/25/18 07/25/18 08:20 Blood - Peripheral Aerobic Blood Culture - Preliminary No growth in 3 days 07/25/18 08:20 Blood - Peripheral Anaerobic Blood Culture - Final Serratia marcescens 07/25/18 08:30 Blood - Peripheral Aerobic Blood Culture - Preliminary No growth in 3 days 07/25/18 08:30 Blood - Peripheral Anaerobic Blood Culture - Final Serratia marcescens Lab - Chemistry Results 07/28/18 05:23 BUN 10 Creatinine 0.80 Estimated GFR Greater than 89 Imaging: ITS Impressions Chest X-Ray 07/25/18 08:38 CONCLUSION: No evidence of acute cardiopulmonary process. Physical Exam: GENERAL: awake and alert, not in respiratory distress. SKIN: Cool and dry. Trach velasquez more in RUE than LUE. HEAD: Atraumatic. Normocephalic. No temporal wasting, or tenderness. EYES: [place] conjunctiva. No petechia or hemorrhage. Pupils equal, round and reactive to light. Extraocular movements full and intact. No scleral icterus. No injection or drainage. EARS, NOSE AND THROAT: Nose without bleeding or purulent nasal discharge. No sinus tenderness. Mucous membranes pink and moist. No oral lesions noted. No exudate. No oral thrush. NECK: Trachea midline. Supple and not tender, no meningeal signs CARDIOVASCULAR: Regular rate and rhythm. No murmurs, rubs or gallops heard RESPIRATORY: Clear to auscultation. Breath sounds equal bilaterally. No rales , wheezing or rhonchi ABDOMEN: Soft, non-tender, nondistended. Bowel sounds present and normoactive. No guarding. No rebound. No organomegaly. EXTREMITIES: No clubbing, cyanosis, or edema. No joint effusion, has good ROM. No calf tenderness. BACK: Scar in low back, unremarkable NEUROLOGICAL: Awake and alert. Cranial nerves grossly intact. Motor grossly within normal limits. PSYCHIATRIC: Normal affect, calm and cooperative. LINE: No evidence of infection Assessment and Plan - Plan Impression Serratia bacteremia, source? Known IVDU Recommendation US BUE ebval thrombus Agree with repeating 2 BC Xray back, may need MRI Continue Cefepime ESR, CRP Follow C/S and adjust Abx MOnitor progress
--- NOTE | 2018-07-28 17:45 | XR ---
EXAM DATE: 07/28/2018 5:31 PM EST AGE/SEX: 33 years / Male INDICATIONS: Low back pain CLINICAL DATA: This is the patient's initial encounter. Patient reports that signs and symptoms have been present for 2 weeks and indicates a pain score of 8/10. MEDICAL/SURGICAL HISTORY: . Chronic back pain . Lumbar surgery COMPARISON: No prior exams available for comparison. FINDINGS: No appreciable compression deformities, spondylolisthesis, or spondylolysis is seen. The d isc spaces are well-maintained for technique. CONCLUSION: Unremarkable study. Electronically signed by: Santiago Webb MD Board Certified Radiologist 07/28/2018 5:44 PM EST
[2018-07-29 08:17] VITALS: RESP 16
[2018-07-29] MEDS: Ketorolac Inj 30 MG/ML (IVP) Vial IV.PUSH PRN (11:33)
--- NOTE | 2018-07-29 12:18 | P.PN ---
Subjective Interval history: Follow-up severe sepsis/Serratia bacteremia July 29, 2018-patient seen and examined, currently afebrile. Requesting stronger narcotics. Otherwise no other issues. Repeat blood culture still negative Physical Exam Vital signs: Vital Signs 07/28/18 13:30 07/28/18 15:10 07/28/18 20:00 Temperature 98.2 F 98.7 F Pulse Rate 65 66 Respiratory Rate 18 20 14 Blood Pressure 128/78 132/78 Pulse Oximetry 98 96 07/29/18 00:26 07/29/18 04:00 07/29/18 08:14 Temperature 98.9 F 98.3 F 98.5 F Pulse Rate 61 73 66 Respiratory Rate 12 12 16 Blood Pressure 134/73 119/86 130/85 Pulse Oximetry 97 97 96 Intake & Output 07/28/18 07/29/18 07/29/18 18:59 06:59 18:59 Intake Total 820 / 820 200 / 200 Output Total 1500 / 1500 600 / 600 Balance -680 / -680 -400 / -400 Intake: IV 100 / 100 200 / 200 Maxipime Inj 2,000 MG In NS Inj 100 / 100 200 / 200 100 ML @ 200 mls/hr IV.SIG Q8H [facility] Rx#:[id number] Oral 720 / 720 Output: Urine 1500 / 1500 600 / 600 Other: # Voids 2 Date of Last Bowel Movement 07/25/18 Narrative: GENERAL: NAD SKIN: Warm and dry. HEAD: Atraumatic. Normocephalic. EYES: Pupils equal and round. No scleral icterus. No injection or drainage. ENT: No nasal bleeding or discharge. Mucous membranes pink and moist. NECK: Trachea midline. No JVD. CARDIOVASCULAR: Regular rate and rhythm. RESPIRATORY: No accessory muscle use. Clear to auscultation. Breath sounds equal bilaterally. GASTROINTESTINAL: Abdomen soft, non-tender, nondistended. Hepatic and splenic margins not palpable. MUSCULOSKELETAL: Extremities without clubbing, cyanosis, or edema. No obvious deformities. NEUROLOGICAL: Awake and alert. No obvious cranial nerve deficits. Motor grossly within normal limits. Five out of 5 muscle strength in the arms and legs. Normal speech. PSYCHIATRIC: Appropriate mood and affect; insight and judgment normal. Results - Labs CBC & Chem 7: 07/26/18 03:51 07/28/18 05:23 Laboratory Results - last 24 hr 07/28/18 07/28/18 07/28/18 18:47 18:47 18:47 ESR 12 C-Reactive Protein 1.10 H Vancomycin Trough 9.5 Microbiology 07/28/18 15:45 Blood - Peripheral Aerobic Blood Culture - Preliminary No growth in 1 day 07/28/18 15:45 Blood - Peripheral Anaerobic Blood Culture - Preliminary No growth in 1 day 07/28/18 15:40 Blood - Peripheral Aerobic Blood Culture - Preliminary No growth in 1 day 07/28/18 15:40 Blood - Peripheral Anaerobic Blood Culture - Preliminary No growth in 1 day 07/25/18 08:20 Blood - Peripheral Aerobic Blood Culture - Preliminary No growth in 4 days 07/25/18 08:20 Blood - Peripheral Anaerobic Blood Culture - Final Serratia marcescens 07/25/18 08:30 Blood - Peripheral Aerobic Blood Culture - Preliminary No growth in 4 days 07/25/18 08:30 Blood - Peripheral Anaerobic Blood Culture - Final Serratia marcescens - Imaging Impressions Lumbar Spine X-Ray 07/28/18 00:00 CONCLUSION: Unremarkable study. Assessment and Plan - Assessment (1) IVDU (intravenous drug user) Code(s): F19.90 - Other psychoactive substance use, unspecified, uncomplicated Status: Acute (2) Severe sepsis Code(s): A41.9 - Sepsis, unspecified organism; R65.20 - Severe sepsis without septic shock Status: Acute (3) Bacterial infection due to [place] Code(s): A49.8 - Other bacterial infections of unspecified site Status: Acute - Plan 33-year-old man with Severe sepsis due to bacteremia from IV Drug Abuse Now resolved Serratia bacteremia Currently on cefepime IV Repeat blood culture negative to date Appreciate input from infectious disease specialist 2D echo showed normal EF with no endocarditis. IV drug abusepatient counseled. Tobacco abuse cessation counseling provided, nicotine patch.
[2018-07-29 12:45] VITALS: BP 136/78; PULSE 74; TEMP 98.9; O2SAT 99
--- NOTE | 2018-07-29 15:17 | P.PNID ---
Subjective Remarks: Notes reviewed. Patient says he feels okay. Apart from having sweats he denies other symptoms including chills, nausea, vomiting or shortness of breath. No fever. Repeat blood cultures negative in 1 day. 33-year-old male, admitted to the hospital with fever and chills. He has known IV drug use. His blood cultures are growing [place]. Echocardiogram done did not show any vegetation. Antibiotics: Cefepime Lines: PIV Past Medical History: IV drug use Chronic pain Back surgery Allergies/Adverse Reactions: Allergies No Known Allergies Allergy (Verified 07/25/18 08:32) Objective Vital Signs 07/28/18 20:00 07/29/18 00:26 07/29/18 04:00 Temperature 98.7 F 98.9 F 98.3 F Pulse Rate 66 61 73 Respiratory Rate 14 12 12 Blood Pressure 132/78 134/73 119/86 Pulse Oximetry 96 97 97 07/29/18 08:14 07/29/18 12:42 Temperature 98.5 F 98.9 F Pulse Rate 66 74 Respiratory Rate 16 16 Blood Pressure 130/85 136/78 Pulse Oximetry 96 99 Intake & Output 07/28/18 07/29/18 07/29/18 18:59 06:59 18:59 Intake Total 820 / 820 200 / 200 100 / 100 Output Total 1500 / 1500 600 / 600 Balance -680 / -680 -400 / -400 100 / 100 Intake: IV 100 / 100 200 / 200 100 / 100 Maxipime Inj 2,000 MG In NS Inj 100 / 100 200 / 200 100 / 100 100 ML @ 200 mls/hr IV.SIG Q8H [facility] Rx#:[id number] Oral 720 / 720 Output: Urine 1500 / 1500 600 / 600 Other: # Voids 2 Date of Last Bowel Movement 07/25/18 07/28/18 15:45 Blood - Peripheral Aerobic Blood Culture - Preliminary No growth in 1 day 07/28/18 15:45 Blood - Peripheral Anaerobic Blood Culture - Preliminary No growth in 1 day 07/28/18 15:40 Blood - Peripheral Aerobic Blood Culture - Preliminary No growth in 1 day 07/28/18 15:40 Blood - Peripheral Anaerobic Blood Culture - Preliminary No growth in 1 day 07/25/18 08:20 Blood - Peripheral Aerobic Blood Culture - Preliminary No growth in 4 days 07/25/18 08:20 Blood - Peripheral Anaerobic Blood Culture - Final Serratia marcescens 07/25/18 08:30 Blood - Peripheral Aerobic Blood Culture - Preliminary No growth in 4 days 07/25/18 08:30 Blood - Peripheral Anaerobic Blood Culture - Final Serratia marcescens Lab - Hematology Results 07/28/18 18:47 ESR 12 Lab - Chemistry Results 07/28/18 07/28/18 05:23 18:47 BUN 10 Creatinine 0.80 Estimated GFR Greater than 89 C-Reactive Protein 1.10 H Imaging: ITS Impressions Chest X-Ray 07/25/18 08:38 CONCLUSION: No evidence of acute cardiopulmonary process. Lumbar Spine X-Ray 07/28/18 00:00 CONCLUSION: Unremarkable study. Physical Exam: GENERAL: Patient is in no acute distress. SKIN: Cool and dry. Trach velasquez more in RUE than LUE. HEENT: Extraocular movements grossly intact, pupils reactive to light. No icterus. No conjunctival erythema. Oropharynx mucosa is moist. No thrush. NECK: Trachea midline. Supple and not tender. CARDIOVASCULAR: Regular rate and rhythm. No murmurs, rubs or gallops. RESPIRATORY: Clear to auscultation. ABDOMEN: Soft, non-tender, nondistended. Bowel sounds present and normoactive. EXTREMITIES: No clubbing, cyanosis, or edema. No joint effusion, has good ROM. No calf tenderness. BACK: Scar in low back, unremarkable NEUROLOGICAL: Awake and alert. Cranial nerves grossly intact. Motor grossly within normal limits. PSYCHIATRIC: Calm and cooperative. LINE: No evidence of infection Assessment and Plan - Plan Impression Serratia bacteremia, source? Likely related to IV drug use. Known IVDU. 2D echocardiogram without evidence of endocarditis. Recommendation Continue cefepime and monitor the blood cultures. If the blood culture remains negative at 72 hours, he can be discharged on p.o. Levaquin until 08/08/2018. If the blood culture remains positive he should have MRI of the spine for further workup.
== END 2018-07-29 20:42 | disposition left against medical advice (07) | DRG 872 ==
LOC: NEPC 08:25 → NEDA 08:25 → NEPHCDU 12:31
PROVIDERS: ADMIT Hospitalist; ATTEND Hospitalist
DX: F17.210 Nicotine dependence, cigarettes, uncomplicated; G89.29 Other chronic pain; R51 Headache; M54.9 Dorsalgia, unspecified; D69.6 Thrombocytopenia, unspecified; R65.20 Severe sepsis without septic shock; Z80.1 Family history of malignant neoplasm of trachea, bronchus and lung; M25.569 Pain in unspecified knee; F11.10 Opioid abuse, uncomplicated; Z59.0 Homelessness; A41.53 Sepsis due to Serratia; F41.9 Anxiety disorder, unspecified; R00.0 Tachycardia, unspecified
CPT/HCPCS: 71010; 71045; 72110; 80048; 80053; 80202; 81001; 82550; 82565; 83605; 83690; 83735; 84484; 84520; 85025; 85610; 85651; 85652; 85730; 86140; 87040; 87077; 87149; 87186; 87205; 87275; 87276; 87804; 93005; 93306; J0692; J1885; J2405; J2550; J3370; J7030; J7040; Q0169